=== PATIENT | male | born 1985 | race Caucasian/White ===

== ENCOUNTER 2022-09-23 12:49 | Emergency (ER) | payer MEDICAID ==
[2022-09-23] MEDS ORDERED: Ketorolac 30 MG/ML SDV IM ONE (13:41)
== END 2022-09-23 14:30 | disposition home or self-care (01) ==
LOC: JD.ED 12:49
DX: S22.42XA Multiple fractures of ribs, left side, initial encounter for closed fracture (principal); M25.512 Pain in left shoulder; F17.210 Nicotine dependence, cigarettes, uncomplicated; Z88.8 Allergy status to other drugs, medicaments and biological substances
CPT/HCPCS: 71101; 73030; 96372; 99283; J1885